=== PATIENT | male | born 1955 | race Caucasian/White ===

== ENCOUNTER 2019-01-25 05:42 | Inpatient (IN) | payer OTHER ==
[~2019-01-25] VITALS: Ht 185.4 cm; Wt 126.1 kg
[2019-01-25 06:19] LABS: Hematocrit 31.8 % (37.0-53.0); Hemoglobin 10.5 g/dL (13.5-17.5); Mean Corpuscular HGB 32.9 pg (26.0-34.0); Mean Corpuscular Volume 100 fL (80-100); Mean Platelet Volume 10.9 fL (9.1-12.4); NRBC ABSOLUTE 0.02 K/mm3 (0.00-0.02); NRBC Auto 0.1 /100 WBC (0.0-0.2); Platelet Count 166 K/mm3 (150-400); RDW Coefficient Variation 12.8 % (11.7-14.2); RDW Standard Deviation 45.9 fL (35.1-46.3); Red Blood Cell Count 3.19 M/mm3 (4.30-5.90); White Blood Cell Count 19.67 K/mm3 (4.00-11.30)
[2019-01-25 06:20] LABS: Calcium, Ionized (POC) 1.17 mmol/L (1.10-1.46); Creatinine (POC) 0.8 mg/dL (0.8-1.3); Hemoglobin (POC) 10.2 g/dL (13.5-17.5); Potassium (POC) 5.1 mmol/L (3.5-5.5)
[2019-01-25 06:39] LABS: Alanine Aminotransfer (ALT/SGP 29 U/L (12-78); Albumin, Blood 3.4 g/dL (3.4-5.0); Albumin/Globulin Ratio 1.1 (0.8-1.8); Alk Phos 94 U/L (50-136); Anion Gap 8 mmol/L (6-16); Aspartate Aminotrans (AST/SGOT 15 U/L (12-37); Bilirubin, Total 0.6 mg/dL (0.1-1.0); Blood Urea Nitrogen 48 mg/dL (8-24); Bun/Creatinine Ratio 67.4 (12.0-20.0); CO2, Blood 25 mmol/L (21-32); Calcium, Blood 8.8 mg/dL (8.5-10.1); Chloride, Blood 108 mmol/L (98-108); Creatinine, Blood 0.71 mg/dL (0.60-1.20); Glomerular Filtration Rate >60 (60-); Glucose, Blood 180 mg/dL (70-99); Potassium, Blood 5.1 mmol/L (3.5-5.5); Sodium, Blood 141 mmol/L (136-145); Total Protein, Blood 6.4 g/dL (6.4-8.2)
[2019-01-25 06:44] LABS: BAND PERCENT MAN 2 % (0-8); BASOPHILS ABSOLUTE MAN 0.19 K/mm3 (0.00-0.23); BASOPHILS PERCENT MAN 1 % (0-2); EOSINOPHILS PERCENT MAN 0 % (0-6); LYMPHOCYTES ABSOLUTE MAN 1.37 K/mm3 (0.84-5.20); LYMPHOCYTES PERCENT MAN 7 % (21-46); MONOCYTES ABSOLUTE MAN 0.78 K/mm3 (0.16-1.47); MONOCYTES PERCENT MAN 4 % (4-13); MYELOCYTE ABSOLUTE MAN 0.19 K/mm3 (0.00-0.00); MYELOCYTE PERCENT MAN 1 % (0-0); NEUTROPHILS ABSOLUTE MAN 17.11 K/mm3 (1.96-9.15); SEG NEUTROPHILS PERCENT MAN 85 % (41-73); TOTAL CELLS COUNTED 100
[2019-01-25] MEDS ORDERED: METO10 PO (08:42)
[2019-01-25] MEDS ORDERED: OXYC5 PO (08:42)
[2019-01-25] MEDS ORDERED: ONDA8 PO (08:42)
[2019-01-25] MEDS ORDERED: LISI20 PO (08:43)
[2019-01-25] MEDS ORDERED: ATOR10 PO (08:43)
[2019-01-25 09:02] LABS: Hematocrit 30.8 % (37.0-53.0); Hemoglobin 10.2 g/dL (13.5-17.5)
[2019-01-25 09:18] LABS: International Normalized Ratio 1.11; Prothrombin Time Results 11.7 Sec (9.7-11.5)
[2019-01-25 13:21] LABS: Hematocrit 29.7 % (37.0-53.0); Hemoglobin 9.6 g/dL (13.5-17.5)
[2019-01-25 14:07] LABS: Hematocrit 30.7 % (37.0-53.0)
[2019-01-25] MEDS ORDERED: Hydrocortiso453.6 G1 TOP (16:36)
[2019-01-25] MEDS ORDERED: Cartia Xt240 MG PO (16:37)
[2019-01-25] MEDS ORDERED: ACET325 PO (16:38)
[2019-01-25] MEDS ORDERED: THERA1 EACH PO (16:38)
--- NOTE | 2019-01-25 16:51 | NUR ---
INTO SDS VIA Float: [place]. PT A&OX3. DENIES PAIN OR NAUSEA AT THIS TIME. HISTORY AND ALLERGIES REVIEWED. NPO STATUS CONFIRMED. LUNGS CLEAR-SATS>90% ON RA.SBP TRENDING 120'S AT THIS TIME-HR 90'S
--- NOTE | 2019-01-25 17:18 | NUR ---
01/25/19 1718 Marcus Carter History, Chart, Medications and Allergies reviewed before start of procedure.MONITOR INTACT WITH CONTINUOUS PULSE OXIMETRY AND INTERMITTENT BP.3-LEAD EKG REVIEWED WITH PHYSICIAN PRIOR TO START OF PROCEDURE.O2 VIA N/C INTACT THROUGHOUT SEDATION/PROCEDURE. Patient confirms NPO status and agrees with scheduled surgery.See Anesthesia record.
--- NOTE | 2019-01-25 18:30 | NUR ---
PT TRANSPORTED TO UNIT VIA STRETCHER, A/0 X 4, PLEASANT/COOPERATIVE, DAUGHTER ACCOMPANYING, VSS
[2019-01-25 19:18] LABS: Hematocrit 29.9 % (37.0-53.0); Hemoglobin 9.8 g/dL (13.5-17.5)
[2019-01-26 04:15] LABS: BASOPHILS ABSOLUTE AUTO 0.08 K/mm3 (0.00-0.23); BASOPHILS PERCENT AUTO 1 % (0-2); EOSINOPHILS ABSOLUTE AUTO 0.01 K/mm3 (0.00-0.68); EOSINOPHILS PERCENT AUTO 0 % (0-6); Hematocrit 28.4 % (37.0-53.0); Hemoglobin 9.2 g/dL (13.5-17.5); IMMATURE GRAN ABSOLUTE AUTO 0.74 K/mm3 (0.00-0.10); IMMATURE GRAN PERCENT AUTO 6 % (0-1); LYMPHOCYTES ABSOLUTE AUTO 1.94 K/mm3 (0.84-5.20); LYMPHOCYTES PERCENT AUTO 16 % (21-46); MONOCYTES ABSOLUTE AUTO 0.78 K/mm3 (0.16-1.47); MONOCYTES PERCENT AUTO 6 % (4-13); Mean Corpuscular HGB 32.3 pg (26.0-34.0); Mean Corpuscular HGB Conc 32.4 g/dL (31.5-36.5); Mean Corpuscular Volume 100 fL (80-100); Mean Platelet Volume 10.9 fL (9.1-12.4); NEUTROPHILS ABSOLUTE AUTO 8.83 K/mm3 (1.96-9.15); NEUTROPHILS PERCENT AUTO 71 % (41-73); NRBC ABSOLUTE 0.02 K/mm3 (0.00-0.02); NRBC Auto 0.2 /100 WBC (0.0-0.2); Platelet Count 116 K/mm3 (150-400); RDW Coefficient Variation 13.4 % (11.7-14.2); RDW Standard Deviation 48.2 fL (35.1-46.3); Red Blood Cell Count 2.85 M/mm3 (4.30-5.90); White Blood Cell Count 12.38 K/mm3 (4.00-11.30)
[2019-01-26 04:29] LABS: Anion Gap 5 mmol/L (6-16); Blood Urea Nitrogen 34 mg/dL (8-24); Bun/Creatinine Ratio 49.3 (12.0-20.0); CO2, Blood 27 mmol/L (21-32); Calcium, Blood 7.9 mg/dL (8.5-10.1); Chloride, Blood 108 mmol/L (98-108); Creatinine, Blood 0.69 mg/dL (0.60-1.20); Glomerular Filtration Rate >60 (60-); Glucose, Blood 102 mg/dL (70-99); Potassium, Blood 4.4 mmol/L (3.5-5.5); Sodium, Blood 140 mmol/L (136-145)
--- NOTE | 2019-01-26 05:19 | NUR ---
NO CHANGES DURING NIGHT. HAS DENIED ANY NEEDS. VS REMAIN STABLE, H/H CONT TO SLOWLY DROP BUT STABLE. HAS BEEN TOLERATING PO, DENIES ANY N/V. POSSIBLE DC HOME TODAY.
--- NOTE | 2019-01-26 16:28 | NUR ---
SHIFT SUMMARY PT HAS DONE WELL TODAY BUT DUE TO HGB DROP, WILL HAVE A SCOPE TOMORROW. DR MCQUEEN INTO SEE PATIENT AND UPDATE HIM ON PLAN OF CARE. PT AGREEABLE. 2 BLACK BMS TODAY. DENIES PAIN OR CRAMPING.
[2019-01-27 05:08] LABS: BASOPHILS ABSOLUTE AUTO 0.06 K/mm3 (0.00-0.23); BASOPHILS PERCENT AUTO 1 % (0-2); EOSINOPHILS PERCENT AUTO 0 % (0-6); Hematocrit 26.4 % (37.0-53.0); Hemoglobin 8.6 g/dL (13.5-17.5); IMMATURE GRAN ABSOLUTE AUTO 0.34 K/mm3 (0.00-0.10); IMMATURE GRAN PERCENT AUTO 5 % (0-1); LYMPHOCYTES ABSOLUTE AUTO 1.56 K/mm3 (0.84-5.20); LYMPHOCYTES PERCENT AUTO 23 % (21-46); MONOCYTES ABSOLUTE AUTO 0.56 K/mm3 (0.16-1.47); MONOCYTES PERCENT AUTO 8 % (4-13); Mean Corpuscular HGB 32.1 pg (26.0-34.0); Mean Corpuscular HGB Conc 32.6 g/dL (31.5-36.5); Mean Corpuscular Volume 99 fL (80-100); Mean Platelet Volume 11.2 fL (9.1-12.4); NEUTROPHILS ABSOLUTE AUTO 4.15 K/mm3 (1.96-9.15); NEUTROPHILS PERCENT AUTO 62 % (41-73); NRBC ABSOLUTE 0.02 K/mm3 (0.00-0.02); NRBC Auto 0.3 /100 WBC (0.0-0.2); Platelet Count 104 K/mm3 (150-400); RDW Coefficient Variation 12.9 % (11.7-14.2); RDW Standard Deviation 45.6 fL (35.1-46.3); Red Blood Cell Count 2.68 M/mm3 (4.30-5.90); White Blood Cell Count 6.67 K/mm3 (4.00-11.30)
[2019-01-27 05:26] LABS: Anion Gap 5 mmol/L (6-16); Blood Urea Nitrogen 18 mg/dL (8-24); Bun/Creatinine Ratio 27.1 (12.0-20.0); CO2, Blood 26 mmol/L (21-32); Calcium, Blood 8.1 mg/dL (8.5-10.1); Chloride, Blood 107 mmol/L (98-108); Creatinine, Blood 0.66 mg/dL (0.60-1.20); Glomerular Filtration Rate >60 (60-); Glucose, Blood 92 mg/dL (70-99); Potassium, Blood 4.5 mmol/L (3.5-5.5); Sodium, Blood 138 mmol/L (136-145)
--- NOTE | 2019-01-27 05:28 | NUR ---
PT DOING WELL. DENIES ANY PAIN, N/V, SOB. STATES SLEPT VERY WELL DURING NIGHT. LABS PENDING THIS AM. PLAN FOR ANOTHER EGD TODAY WITH DR. ZAMORANO. PT IS NPO. PT IS HOPEFUL TO BE ABLE TO GO HOME TODAY. CALL LIGHT IN REACH WILL REPORT OF TO NEXT SHIFT.
--- NOTE | 2019-01-27 14:00 | NUR ---
PT TO DAY SURGERY
--- NOTE | 2019-01-27 14:14 | NUR ---
FROM SURGICAL FLOOR TO [facility]. VSS ADMISSION TO UNIT STARTED. Lungs clear T/O to Auscultation. Patient confirms NPO status and agrees with scheduled surgery.
--- NOTE | 2019-01-27 15:55 | NUR ---
POST OP PT ARRIVES POST OP, DENIES PAIN, N/V, CRAMPING, DIZZINESS. LUNGS CLEAR. CLEAR LQS GIVEN. VSS.
[2019-01-27 16:03] LABS: Hematocrit 26.8 % (37.0-53.0); Hemoglobin 8.9 g/dL (13.5-17.5)
--- NOTE | 2019-01-27 19:27 | NUR ---
SHIFT SUMMARY PT HAD SCOPE TODAY. GI CLEARED PT FOR D/C BUT UNFORTUNATELY TO LATE IN DAY FOR D/C FROM [facility]. WILL CONTINUE MONITORING AND RECHECK HGB IN AM.
--- NOTE | 2019-01-28 05:33 | NUR ---
SHIFT SUMMARY: PT HAS DONE WELL THIS SHIFT. A&O X4, VS WNL. RESTING THROUGHOUT NIGHT. NO COMPLAINTS OF PAIN OR N/V. VOIDING WELL. INDEPENDENT IN ROOM. PT SHOULD DISCHARGE HOME TODAY.
[2019-01-28 05:59] LABS: BASOPHILS ABSOLUTE AUTO 0.07 K/mm3 (0.00-0.23); BASOPHILS PERCENT AUTO 1 % (0-2); EOSINOPHILS PERCENT AUTO 0 % (0-6); Hematocrit 25.8 % (37.0-53.0); Hemoglobin 8.5 g/dL (13.5-17.5); IMMATURE GRAN ABSOLUTE AUTO 0.17 K/mm3 (0.00-0.10); IMMATURE GRAN PERCENT AUTO 3 % (0-1); LYMPHOCYTES PERCENT AUTO 18 % (21-46); MONOCYTES ABSOLUTE AUTO 0.58 K/mm3 (0.16-1.47); MONOCYTES PERCENT AUTO 9 % (4-13); Mean Corpuscular HGB 32.2 pg (26.0-34.0); Mean Corpuscular HGB Conc 32.9 g/dL (31.5-36.5); Mean Corpuscular Volume 98 fL (80-100); Mean Platelet Volume 11.1 fL (9.1-12.4); NEUTROPHILS ABSOLUTE AUTO 4.56 K/mm3 (1.96-9.15); NEUTROPHILS PERCENT AUTO 69 % (41-73); Platelet Count 126 K/mm3 (150-400); RDW Coefficient Variation 12.8 % (11.7-14.2); RDW Standard Deviation 44.5 fL (35.1-46.3); Red Blood Cell Count 2.64 M/mm3 (4.30-5.90); White Blood Cell Count 6.58 K/mm3 (4.00-11.30)
[2019-01-28 06:41] LABS: Anion Gap 6 mmol/L (6-16); Blood Urea Nitrogen 15 mg/dL (8-24); Bun/Creatinine Ratio 23.3 (12.0-20.0); CO2, Blood 27 mmol/L (21-32); Calcium, Blood 8.2 mg/dL (8.5-10.1); Chloride, Blood 106 mmol/L (98-108); Creatinine, Blood 0.64 mg/dL (0.60-1.20); Glomerular Filtration Rate >60 (60-); Glucose, Blood 100 mg/dL (70-99); Potassium, Blood 4.2 mmol/L (3.5-5.5); Sodium, Blood 139 mmol/L (136-145)
[2019-01-28] MEDS ORDERED: Ferrousul325 MG PO (11:56)
[2019-01-28] MEDS ORDERED: PANT40 PO (11:57)
--- NOTE | 2019-01-28 12:32 | NUR ---
PATIENT D/C'D HOME AT THIS TIME W/FAMILY; STATES UNDERSTANDING OF MEDS, DIET, F/U APPOINTMENT, ETC. NO REPORT OF BLEEDING THIS SHIFT. TOLERATING CL DIET W/O C/O. NO ACUTE CHANGES.
== END 2019-01-28 12:32 | disposition home or self-care (01) | DRG 378 ==
LOC: ER 05:42 → ICUW 07:13 → ERHOLD 07:13 → SURS 07:13 → ER 07:13 → ERHOLD 09:56 → SURS 18:39
PROVIDERS: Emergency Medicine; Internal Medicine Gastroenterology; ADMIT Family Medicine
PROC: 0D598ZZ Destruction of Duodenum, Via Natural or Artificial Opening Endoscopic (ICD-10-PCS; 2019-01-25)
PROC: 0D568ZZ Destruction of Stomach, Via Natural or Artificial Opening Endoscopic (ICD-10-PCS; 2019-01-25)
PROC: 30233N1 Transfusion of Nonautologous Red Blood Cells into Peripheral Vein, Percutaneous Approach (ICD-10-PCS; principal; 2019-01-25 17:00)
PROC: 0D598ZZ Destruction of Duodenum, Via Natural or Artificial Opening Endoscopic (ICD-10-PCS; 2019-01-27)
DX: K31.811 Angiodysplasia of stomach and duodenum with bleeding (principal); I42.2 Other hypertrophic cardiomyopathy; K22.10 Ulcer of esophagus without bleeding; Z90.12 Acquired absence of left breast and nipple; I95.9 Hypotension, unspecified; C50.922 Malignant neoplasm of unspecified site of left male breast; G47.33 Obstructive sleep apnea (adult) (pediatric); Z92.21 Personal history of antineoplastic chemotherapy
CPT/HCPCS: 36415; 36430; 80047; 80048; 80053; 83690; 85014; 85018; 85025; 85610; 86850; 86900; 86901; 86923; 93005; 93010; 96365; 96366; 96376; 99285-25; C9113; J2704; J7030; J7120; P9016

== ENCOUNTER 2019-02-07 02:04 | Inpatient (IN) | payer OTHER ==
[~2019-02-07] VITALS: Ht 185.4 cm; Wt 132.8 kg
[~2019-02-07 02:04] MED LIST: ACET325 PO; ATOR10 PO; Cartia Xt240 MG PO; Ferrousul325 MG PO; Hydrocortiso453.6 G1 TOP; LISI20 PO; METO10 PO; ONDA8 PO; OXYC5 PO; PANT40 PO; THERA1 EACH PO
[2019-02-07 02:50] LABS: Hematocrit 22.7 % (37.0-53.0); Hemoglobin 7.3 g/dL (13.5-17.5); Mean Corpuscular HGB 33.3 pg (26.0-34.0); Mean Corpuscular HGB Conc 32.2 g/dL (31.5-36.5); Mean Platelet Volume 11.3 fL (9.1-12.4); NRBC ABSOLUTE 0.02 K/mm3 (0.00-0.02); NRBC Auto 0.1 /100 WBC (0.0-0.2); Platelet Count 246 K/mm3 (150-400); RDW Coefficient Variation 14.3 % (11.7-14.2); RDW Standard Deviation 53.5 fL (35.1-46.3); Red Blood Cell Count 2.19 M/mm3 (4.30-5.90); White Blood Cell Count 25.86 K/mm3 (4.00-11.30)
[2019-02-07 02:52] LABS: Mean Corpuscular Volume 104 fL (80-100)
[2019-02-07 03:08] LABS: Alanine Aminotransfer (ALT/SGP 31 U/L (12-78); Albumin/Globulin Ratio 1.2 (0.8-1.8); Alk Phos 90 U/L (50-136); Anion Gap 8 mmol/L (6-16); Aspartate Aminotrans (AST/SGOT 25 U/L (12-37); Bilirubin, Total 0.6 mg/dL (0.1-1.0); Blood Urea Nitrogen 34 mg/dL (8-24); CO2, Blood 26 mmol/L (21-32); Calcium, Blood 8.2 mg/dL (8.5-10.1); Chloride, Blood 103 mmol/L (98-108); Creatinine, Blood 0.79 mg/dL (0.60-1.20); Globulin, Blood 2.6 g/dL (2.2-4.0); Glomerular Filtration Rate >60 (60-); Glucose, Blood 212 mg/dL (70-99); Potassium, Blood 4.9 mmol/L (3.5-5.5); Sodium, Blood 137 mmol/L (136-145); Total Protein, Blood 5.6 g/dL (6.4-8.2)
[2019-02-07 03:20] LABS: BAND PERCENT MAN 9 % (0-8); BASOPHILS PERCENT MAN 0 % (0-2); EOSINOPHILS ABSOLUTE MAN 0.25 K/mm3 (0.00-0.68); EOSINOPHILS PERCENT MAN 1 % (0-6); LYMPHOCYTES ABSOLUTE MAN 0.77 K/mm3 (0.84-5.20); LYMPHOCYTES PERCENT MAN 3 % (21-46); METAMYELOCYTE ABSOLUTE MAN 0.51 K/mm3 (0.00-0.00); METAMYELOCYTE PERCENT MAN 2 % (0-0); MONOCYTES ABSOLUTE MAN 0.77 K/mm3 (0.16-1.47); MONOCYTES PERCENT MAN 3 % (4-13); NEUTROPHILS ABSOLUTE MAN 23.53 K/mm3 (1.96-9.15); SEG NEUTROPHILS PERCENT MAN 82 % (41-73); TOTAL CELLS COUNTED 100
[2019-02-07 03:42] LABS: Troponin I 0.028 ng/mL (0.000-0.040)
[2019-02-07 03:43] LABS: International Normalized Ratio 1.19; Prothrombin Time Results 12.4 Sec (9.7-11.5)
[2019-02-07] MEDS ORDERED: ASCO500 PO (06:33)
[2019-02-07] MEDS ORDERED: IRON150C PO (06:34)
[2019-02-07 09:43] LABS: Hematocrit 18.3 % (37.0-53.0); Mean Corpuscular HGB 32.1 pg (26.0-34.0); Mean Corpuscular HGB Conc 32.2 g/dL (31.5-36.5); Mean Platelet Volume 11.6 fL (9.1-12.4); Platelet Count 182 K/mm3 (150-400); RDW Coefficient Variation 16.2 % (11.7-14.2); RDW Standard Deviation 58.1 fL (35.1-46.3); Red Blood Cell Count 1.84 M/mm3 (4.30-5.90); White Blood Cell Count 15.84 K/mm3 (4.00-11.30)
[2019-02-07 09:50] LABS: Mean Corpuscular Volume 100 fL (80-100)
[2019-02-07 09:51] LABS: Hemoglobin 5.9 g/dL (13.5-17.5)
[2019-02-07 10:04] LABS: Alanine Aminotransfer (ALT/SGP 24 U/L (12-78); Albumin, Blood 2.5 g/dL (3.4-5.0); Albumin/Globulin Ratio 1.2 (0.8-1.8); Alk Phos 64 U/L (50-136); Anion Gap 6 mmol/L (6-16); Aspartate Aminotrans (AST/SGOT 17 U/L (12-37); Bilirubin, Total 0.6 mg/dL (0.1-1.0); Blood Urea Nitrogen 36 mg/dL (8-24); CO2, Blood 26 mmol/L (21-32); Calcium, Blood 7.4 mg/dL (8.5-10.1); Chloride, Blood 108 mmol/L (98-108); Creatinine, Blood 0.67 mg/dL (0.60-1.20); Globulin, Blood 2.1 g/dL (2.2-4.0); Glomerular Filtration Rate >60 (60-); Glucose, Blood 137 mg/dL (70-99); Potassium, Blood 4.8 mmol/L (3.5-5.5); Sodium, Blood 140 mmol/L (136-145); Total Protein, Blood 4.6 g/dL (6.4-8.2)
--- NOTE | 2019-02-07 11:54 | NUR ---
BEGINING OF SHIFT: ASSUMED CARE OF PT AT 0700, RECIVED REPORT FROM MALINDA DING. PT IS ALERT AND ORIENTED X3. PT IS CALM AND COOPRATIVE AND IS ABLE TO FOLLOW DIRECTIONS. PT BLOOD PRESSURE HAD DECREASED WITH SBP IN THE 80'S WITH HR ABOVE 100. WAS NOTIFED BY BABS DING. PHYSICAN PLACED ORDERS TO HAVE A NS BOLUS. PT BLOOD PRESSURE IS BEGINING TO IMPROVE, AND IS CURRENTLY RECIVING A TRANSFUSION. EXPLAINED TO PT THAT HE SHOULD NOT GET OUT OF BED, AND WAS ENCOURAGED TO USE URINAL IN BED AT THIS TIME. WILL CONTINUE TO MONITOR FOR CHANGES. BED SET AT LOWEST LEVEL AND CALL LIGHT IS WITHIN REACH.
--- NOTE | 2019-02-07 12:54 | NUR ---
History, Chart, Medications and Allergies reviewed before start of procedure.Lungs clear T/O to Auscultation. Patient confirms NPO status and agrees with scheduled surgery.
--- NOTE | 2019-02-07 13:16 | NUR ---
02/07/19 1316 Ajith Prseton Bite Block PlacedPatient to ENDO 1History, Chart, Medications and Allergies reviewed before start of procedure.MONITOR INTACT WITH CONTINUOUS PULSE OXIMETRY AND INTERMITTENT BP.O2 VIA N/C INTACT THROUGHOUT SEDATION/PROCEDURE.See Anesthesia record.
--- NOTE | 2019-02-07 14:20 | NUR ---
INITIAL ASSESSMENT PATIENT ARRIVED TO UNIT AT 1415. PATIENT PALE. LETHARGIC. PATIENT ALERT AND ORIENTED X 4, AFEBRILE. PATIENT DENIES PAIN. PATIENT WEAK- BEDREST AT THIS TIME. PATIENT SATTING 92% AND GREATER ON RA. LUNGS CLEAR IN UPPER LOBES AND DIMINISHED IN LOWER LOBES. PATIENT IN ST, HR IN THE 1-TEENS. HYPOTENSIVE- SBP IN THE 70S. 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 ABDOMEN MILDLY DISTENDED, SOFT, NORMOACTIVE BS. PATIENT DENIES TENDERNESS. REPORTED THAT PATIENT HAD CEE RED EMESIS IN ER AND THEN BLACK STOOL IN PCU. PATIENT HAS RECEIVED 2 UNITS BLOOD BEFORE ADMIT TO ICU. WNL. BED LOW, CALL LIGHT IN REACH. DAUGHTER AT BEDSIDE.
--- NOTE | 2019-02-07 15:42 | NUR ---
BEGINNING OF SHIFT - TRANSFER TO ICU Assumed care of pt at 0700 with Mamta URBANO. Report recieved from Leti DING. Pt on room air. Sinus tachycardia per telemetry. Pt had low BP this morning. Spoke with Dr Duncan regarding BP, who placed orders and then stated Dr Triplett would be assuming care of the pt. Fluid bolus initiated. Critical hemoglobin received. This RN placed call to Dr Triplett. Dr Sanchez also aware. This RN spoke to Dr Sanchez regarding the pt's BP. Provider verbalized plan for EGD in afternoon, after one unit of PRBCs transfued. One unit PRBCs transfused. Pt taken for EGD and then was transferred to ICU after the procedure. Mamta URBANO accompanied pt to day surgery and then gave bedside report to STITCH RUBBER, Chantale. Belongings transferred from PCU 13 to ICU 14.
[2019-02-07 16:04] LABS: Hematocrit 16.9 % (37.0-53.0); Hemoglobin 5.4 g/dL (13.5-17.5)
--- NOTE | 2019-02-07 18:43 | NUR ---
SHIFT SUMMARY PATIENT IS AOX4 AND LETHARGIC. PATIENT EXPRESSES FEELING WEAK AND IS BEDREST AT THIS TIME. PATIENT IS AFEBRILE. NO COMPLAINTS OF PAIN AT THIS TIME. PATIENT SKIN COLOR HAS IMPROVED. PATIENT IS SATTING 90% OR GREATER ON RA. HR IS IN THE LOW 100S TO 1-TEENS. BP IS STABLE NOW. PATIENT HAS MILD ABDOMINAL DISTENSION. PATIENT HAS HAD TWO SMALL LIQUID MAROON STOOLS. IS WNL, PATIENT IS UTILIZING THE URINAL AT THE BEDSIDE. PATIENT RECEIVING 3RD UNIT OF PRBCS SINCE ADMITTED TO ICU. BED LOW. CALL LIGHT IN REACH.
--- NOTE | 2019-02-07 19:15 | NUR ---
[place] of Care: Patient alert and oriented x4, sitting upright in bed. Denies pain, discomfort, SOB, or dyspnea. VSS, O2-95-96% on RA, systolic BP 90's- low 100's. No s/s of active GI bleed at this time, maroon stool x2 report from day shift RN. 3rd of 3 units of blood started at shift change. Will check H+H level 1/2hr after blood has finished infusing, no s/s of infusion reaction noted. Peripheral IV to rt AC patent and intact. Medi-port access to rt upper chest patent and intact, infusing protonix gtt without difficulty. Call light in reach, makes needs known. Will continue to monitor until report to day shift RN.
[2019-02-07 23:34] LABS: Hematocrit 22.3 % (37.0-53.0); Hemoglobin 7.4 g/dL (13.5-17.5)
--- NOTE | 2019-02-08 06:14 | NUR ---
Shift Summary: Patient slept well throughout shift, easily roused via verbal stimuli. Continues to deny pain, discomfort, SOB, or dyspnea. VSS, O2-94-98% on RA while awake, 2-4L/NC while sleeping. X1 maroon colored BM early in shift, no further BM's noted, no s/s of active GI bleed. Systolic BP increased throughout shift, from 80's-90's to 120's. H+H at approx 0100hr showed hemoglobin of 7.4, ordered x2 units of PRBC's per Dr. Triplett nurse notify, 2nd of those 2 units infusing now. Peripheral IV x1, and mediport to rt upper chest remain patent and intact. No s/s of transfusion reactions noted. Sleeping at this time. Will continue to monitor until report to day shift RN.
--- NOTE | 2019-02-08 08:00 | NUR ---
ASSUMED CARE PT. ALERT AND ORIENTED THIS AM. PT. RESTING COMFORTABLY IN BED, DENIES PAIN THIS AM. BLOOD PRODUCTS COMPLETED AND H&H REPEAT TO BE DRAWN PER DR. CAGE. PT. VSS THIS AM. DENIES ANY N/V. URINAL AT BEDSIDE. CALL LIGHT IN REACH. FAMILY AT BEDSIDE THIS AM.
[2019-02-08 08:42] LABS: Hematocrit 25.8 % (37.0-53.0); Hemoglobin 8.5 g/dL (13.5-17.5)
--- NOTE | 2019-02-08 08:42 | NUR ---
SPOKE WITH DR. CHE AMADO FOR PT TO HAVE ICE CHIPS THIS AM. PT. TO HAVE UPPER SCOPE AGAIN TODAY, TIME TBD.
--- NOTE | 2019-02-08 16:42 | NUR ---
02/08/19 1645 Sharron Coffey History, Chart, Medications and Allergies reviewed before start of procedure. MONITOR INTACT WITH CONTINUOUS PULSE OXIMETRY AND INTERMITTENT BP. Bite Block PlacedSee Anesthesia record.
--- NOTE | 2019-02-08 17:02 | NUR ---
DAY SURGERY TEAM AT BEDSIDE SCOPE IN PROGRESS.
--- NOTE | 2019-02-08 17:43 | NUR ---
SCOPE COMPLETED. PT. DROWSY IN ROOM, PT. REMAINS ON 2LNC. PHOTOS FROM PROCEDURE IN CHART. MAY ADVANCE TO CLEAR LIQUID DIET WHEN READY.
--- NOTE | 2019-02-08 17:55 | NUR ---
SHIFT SUMMARY PT. RESTING COMFORTABLY IN BED. PER DR. BOLTON CHANGED TO PCU STATUS AT THIS TIME. VSS. NADN. CALL LIGHT IN REACH.
--- NOTE | 2019-02-08 22:17 | NUR ---
ASSUMING CARE RECEIVED PT REPORT FROM TIMUR PERAZA. PT IS ALERT AND ORIENTED AT THE TIME CARE ASSUMED. PT IS ADMITTED DUE TO UPPER GI BLEED. PER REPORT PT HAS PREVIOUSLY RECEIVED MULTIPLE UNITS OF BLOOD. PER REPORT AND PT, PT WAS HAVING BLACK TARRY STOOL. PT DENIES THE NEED TO HAVE BOWEL MOVEMENT AT THIS TIME. PT IS ON 2L O2 VIA NC WHILE ASLEEP DUE TO OCCASIONAL DESATURATIONS WHILE SLEEPING. PT IS RECEIVING NS AT 125ML/HR AND PROTONIX GTT AT 10ML/HR. PT IS ABLE TO USE THE URINAL WITHOUT DIFFICULTY. PT IS ABLE TO USE CALL LIGHT APPROPRIATELY. PT DENIES PAIN OR DISCOMFORT AT THIS TIME. PT STATES THAT HE FEELS HIS STRENGTH IN IMPROVING AND DENIES ANY LIGHT HEADEDNESS AT THIS TIME. HR AND BP STABLE AT THIS TIME. ASSUMING CARE OF PT AT THE TIME OF SHIFT REPORT. WILL CONTINUE TO MONITOR PT.
--- NOTE | 2019-02-09 02:21 | NUR ---
RHYTHM CHANGE AT APPROX 0212 PT WAS OBSERVED TO HAVE ENTERED A FAST RHYTHM WITH HR IN THE 150'S. PT DENIED ANY CHEST PAIN AND BP APPEARED TO MAINTAIN THROUGH THE EPISODE. PT REPORTED A FEELING OF REFLUX OR HEARTBURN. SVT APPEARED TO LAST FOR LESS THAN 1 MIN AND PT RETURNED TO PREVIOUS RATE IN THE 80-90'S. PT REPORTED THAT THE SENSATION OF REFLUX ENDED ONCE PT RETURNED TO SINUS RHYTHM. DR FARIAS CALLED AND INFORMED. ORDER RECEIVED TO DRAW CHEM 8 LAB AND TO DRAW AM LABS EARLY. WILL CONTINUE TO MONITOR PT.
[2019-02-09 02:53] LABS: Hemoglobin 7.6 g/dL (13.5-17.5); Mean Corpuscular HGB 29.9 pg (26.0-34.0); Mean Platelet Volume 11.2 fL (9.1-12.4); Platelet Count 88 K/mm3 (150-400); RDW Coefficient Variation 19.8 % (11.7-14.2); RDW Standard Deviation 65.8 fL (35.1-46.3); Red Blood Cell Count 2.54 M/mm3 (4.30-5.90); White Blood Cell Count 2.14 K/mm3 (4.00-11.30)
[2019-02-09 02:56] LABS: Mean Corpuscular Volume 91 fL (80-100)
[2019-02-09 03:10] LABS: Anion Gap 5 mmol/L (6-16); Blood Urea Nitrogen 15 mg/dL (8-24); Bun/Creatinine Ratio 24.5 (12.0-20.0); CO2, Blood 27 mmol/L (21-32); Calcium, Blood 7.1 mg/dL (8.5-10.1); Chloride, Blood 111 mmol/L (98-108); Creatinine, Blood 0.61 mg/dL (0.60-1.20); Glomerular Filtration Rate >60 (60-); Glucose, Blood 86 mg/dL (70-99); Potassium, Blood 3.8 mmol/L (3.5-5.5); Sodium, Blood 143 mmol/L (136-145)
[2019-02-09 03:18] LABS: BAND PERCENT MAN 15 % (0-8); BASOPHILS ABSOLUTE MAN 0.04 K/mm3 (0.00-0.23); BASOPHILS PERCENT MAN 2 % (0-2); EOSINOPHILS PERCENT MAN 5 % (0-6); LYMPHOCYTES ABSOLUTE MAN 0.27 K/mm3 (0.84-5.20); LYMPHOCYTES PERCENT MAN 13 % (21-46); METAMYELOCYTE ABSOLUTE MAN 0.06 K/mm3 (0.00-0.00); METAMYELOCYTE PERCENT MAN 3 % (0-0); MONOCYTES ABSOLUTE MAN 0.06 K/mm3 (0.16-1.47); MONOCYTES PERCENT MAN 3 % (4-13); MYELOCYTE ABSOLUTE MAN 0.04 K/mm3 (0.00-0.00); MYELOCYTE PERCENT MAN 2 % (0-0); NEUTROPHILS ABSOLUTE MAN 1.54 K/mm3 (1.96-9.15); SEG NEUTROPHILS PERCENT MAN 57 % (41-73); TOTAL CELLS COUNTED 100
--- NOTE | 2019-02-09 07:22 | NUR ---
SHIFT SUMMARY NOTE PT HAS REMAINED ALERT AND ORIENTED WHILE AWAKE THROUGH THE NIGHT. PT HAS HAD NO COMPLAINTS OF PAIN OR DISCOMFORT THROUGH THE NIGHT WITH THE EXCEPTION OF BRIEF PERIOD OF REFLUX THROUGH EPISODE OF SVT THAT WAS PREVIOUSLY NOTED. WITH MORNING LABS PT WAS FOUND TO HAVE A HGB LESS THAN 8.0. DR FARIAS WAS CALLED AND INFORMED OF PTS DECREASED H/H, WBC, AND PLT. ORDER RECEIVED TO TRANSFUSE 1 UNIT PRBC'S UNIT TRANSFUSED ORDERED. PT HAD NO FURTHER OBSERVED EPISODES OF SVT AND HR WAS OTHERWISE STABLE IN THE 80-90 RANGE. VITALS OTHERWISE STABLE. PT CONTINUES TO RECEIVE NS AT 125ML/HR. NS WAS PLACED ON STANDBY THROUGH BLOOD TRANSFUSION, AND RESUMED AFTER COMPLETION. PT CONTINUES TO RECEIVE PROTONIX AT 10ML/HR. PT HAS BEEN ABLE TO USE URINAL THROUGH THE NIGHT WITHOUT ASSISTANCE. PT ABLE OT USE CALL LIGHT APPROPRIATELY. WILL REPORT OFF TO ONCOMING DAY SHIFT NURSE.
--- NOTE | 2019-02-09 09:30 | NUR ---
ASSUMED CARE PT ALERT AND ORIENTED. VS STABLE. 02 SATS >92% ON 2L NC. PT TITRATED TO ROOM AIR WITH SATS REMAINING ABOVE 92%. PT DENIES ANY PAIN. LS CLEAR. BOWEL TONES HYPERACTIVE IN ALL FOUR QUADRANTS. NS INFUSING PER ORDERS INTO MEDIPORT. PROTONIX GTT INFUSING PER ORDERS. PT TOLERATING CLEAR LIQUIDS. WILL CONTINUE TO MONITOR,
[2019-02-09 15:00] LABS: BASOPHILS ABSOLUTE AUTO 0.04 K/mm3 (0.00-0.23); BASOPHILS PERCENT AUTO 2 % (0-2); Hematocrit 27.7 % (37.0-53.0); Hemoglobin 9.1 g/dL (13.5-17.5); LYMPHOCYTES ABSOLUTE AUTO 0.38 K/mm3 (0.84-5.20); LYMPHOCYTES PERCENT AUTO 18 % (21-46); MONOCYTES ABSOLUTE AUTO 0.15 K/mm3 (0.16-1.47); MONOCYTES PERCENT AUTO 7 % (4-13); Mean Corpuscular HGB 29.5 pg (26.0-34.0); Mean Corpuscular HGB Conc 32.9 g/dL (31.5-36.5); Mean Corpuscular Volume 90 fL (80-100); Mean Platelet Volume 11.5 fL (9.1-12.4); Platelet Count 88 K/mm3 (150-400); RDW Coefficient Variation 18.2 % (11.7-14.2); RDW Standard Deviation 60.4 fL (35.1-46.3); Red Blood Cell Count 3.08 M/mm3 (4.30-5.90); White Blood Cell Count 2.11 K/mm3 (4.00-11.30)
[2019-02-09 15:03] LABS: EOSINOPHILS ABSOLUTE AUTO 0.05 K/mm3 (0.00-0.68); EOSINOPHILS PERCENT AUTO 2 % (0-6); IMMATURE GRAN ABSOLUTE AUTO 0.02 K/mm3 (0.00-0.10); IMMATURE GRAN PERCENT AUTO 1 % (0-1); NEUTROPHILS ABSOLUTE AUTO 1.47 K/mm3 (1.96-9.15); NEUTROPHILS PERCENT AUTO 70 % (41-73)
--- NOTE | 2019-02-09 18:14 | NUR ---
SHIFT SUMMARY PT ALERT AND ORIENTED. VS STABLE. ELEVATION IN BP AND NEW ORDERS PROVIDED FOR BP AND HR CONTROL. PT HAD ONE LARGE LIQUID BROWN BOWEL MOVEMENT THIS SHIFT. PT ADVANCED TO REGULAR DIET. PROTONIX GTT INFUSING PER ORDERS. NS INFUSING TKO INTO MEDIPORT. PER DR. BOLTON PT TO DISCHARGE TOMORROW. WILL CONTINUE TO MONITOR AND REPORT TO ONCOMING RN. CALL LIGHT IN REACH. FAMILY AT BEDSIDE.
[2019-02-10 05:23] LABS: Hematocrit 27.7 % (37.0-53.0); Hemoglobin 9.1 g/dL (13.5-17.5); Mean Corpuscular HGB 29.4 pg (26.0-34.0); Mean Corpuscular HGB Conc 32.9 g/dL (31.5-36.5); Mean Corpuscular Volume 90 fL (80-100); Mean Platelet Volume 11.2 fL (9.1-12.4); Platelet Count 102 K/mm3 (150-400); RDW Coefficient Variation 17.7 % (11.7-14.2); RDW Standard Deviation 58.6 fL (35.1-46.3); Red Blood Cell Count 3.09 M/mm3 (4.30-5.90); White Blood Cell Count 2.08 K/mm3 (4.00-11.30)
[2019-02-10 05:40] LABS: Alanine Aminotransfer (ALT/SGP 20 U/L (12-78); Albumin, Blood 2.5 g/dL (3.4-5.0); Alk Phos 58 U/L (50-136); Anion Gap 4 mmol/L (6-16); Aspartate Aminotrans (AST/SGOT 13 U/L (12-37); Bilirubin, Total 0.7 mg/dL (0.1-1.0); Blood Urea Nitrogen 8 mg/dL (8-24); Bun/Creatinine Ratio 12.7 (12.0-20.0); CO2, Blood 29 mmol/L (21-32); Calcium, Blood 7.6 mg/dL (8.5-10.1); Chloride, Blood 106 mmol/L (98-108); Creatinine, Blood 0.63 mg/dL (0.60-1.20); Globulin, Blood 2.6 g/dL (2.2-4.0); Glomerular Filtration Rate >60 (60-); Glucose, Blood 106 mg/dL (70-99); Magnesium, Blood 1.8 mg/dL (1.6-2.4); Phosphorus, Blood 2.9 mg/dL (2.5-4.9); Potassium, Blood 3.6 mmol/L (3.5-5.5); Sodium, Blood 139 mmol/L (136-145); Total Protein, Blood 5.1 g/dL (6.4-8.2)
[2019-02-10 06:10] LABS: BAND PERCENT MAN 8 % (0-8); BASOPHILS PERCENT MAN 0 % (0-2); EOSINOPHILS PERCENT MAN 0 % (0-6); LYMPHOCYTES ABSOLUTE MAN 0.41 K/mm3 (0.84-5.20); LYMPHOCYTES PERCENT MAN 20 % (21-46); METAMYELOCYTE ABSOLUTE MAN 0.02 K/mm3 (0.00-0.00); METAMYELOCYTE PERCENT MAN 1 % (0-0); MONOCYTES ABSOLUTE MAN 0.22 K/mm3 (0.16-1.47); MONOCYTES PERCENT MAN 11 % (4-13); NEUTROPHILS ABSOLUTE MAN 1.41 K/mm3 (1.96-9.15); SEG NEUTROPHILS PERCENT MAN 60 % (41-73); TOTAL CELLS COUNTED 100
--- NOTE | 2019-02-10 06:44 | NUR ---
SHIFT SUMMARY PT ALERT AND ORIENTED X 3 THROUGHOUT SHIFT. HE HAS BEEN ABLE TO STAND AND WALK TO TOILET FOR NEEDS AND HIS GAIT WAS OBSERVED TO BE STEADY AND WELL BALANCED. THERE HAVE BEEN NO SIGNS OF BLEEDING DURING THE NIGHT AND PATIENT HAD DENIED ANY COPMPLAINTS OF PAIN OR DISCOMFORT. PT HAD NO ACUTE CHANGES TO VITALS OR LOC. PT WAS ABLE TO EFFECTIVELY MAKE NEEDS KNOWN, HAD HIS CALL LIGHT WITHIN REACH AND DEMONSTRATED APPROPRIATE USE OF IT. PT BED WAS LEFT IN THE LOWEST POSITION WITH 2X SIDE RAILS IN PLACE. PT HAS BEEN PLEASANT AND COOPERATIVE THROGUHOUT SHIFT. HE WILL CONTINUE TO BE MONITORED UNTIL HANDOFF TO DAYSHIFT RN.
--- NOTE | 2019-02-10 07:38 | NUR ---
ASSUMED CARE: REPORT RECIEVED FROM DAMIEN Pugh RN. ASSUMED CARE OF THIS PT AT APPROX 0700. ON ASSESSMENT, THE PT IS AWAKE & SITTING UP IN BED. HE DENIES PAIN THIS AM & IS PLEASANT/COOPERATIVE W/ CARE. HE IS A&O & HOPEFUL FOR D/C HOME TODAY. PT REMAINS ON RA W/ O2 SATS > 92%. NSR NOTED ON MONITOR. HTN IS BASELINE FOR PT, MEDS PER EMAR TO BE GIVEN THIS AM. WILL CONTINUE TO MONITOR & UPDATE NEEDED.
--- NOTE | 2019-02-10 11:53 | NUR ---
DISCHARGE TO HOME: DISCHARGE TEACHING HAS BEEN COMPLETED TO PT & PT's DAUGHTER, THEY DENY FURTHER QUESTIONS & VERBALIZE UNDERSTANDING. MEDIPORT HAS BEEN HEPARIN LOCKED & DEACCESSED, HEART MONITOR & PIV HAVE BEEN REMOVED W/O DIFFICULTY. ALL PT BELONGINGS & D/C PACKET HAVE BEEN TAKEN OUT BY PT's DAUGHTER.
== END 2019-02-10 11:50 | disposition home or self-care (01) | DRG 378 ==
LOC: ER 02:04 → PCU 02:05 → ICUW 02:05 → PCU 06:16 → ICUW 06:20
PROVIDERS: Emergency Medicine; Family Medicine; Hospitalist; Internal Medicine Gastroenterology; Nurse Practitioner Acute Care; ADMIT Internal Medicine
PROC: 0DJ08ZZ Inspection of Upper Intestinal Tract, Via Natural or Artificial Opening Endoscopic (ICD-10-PCS; 2019-02-07)
PROC: 30233N1 Transfusion of Nonautologous Red Blood Cells into Peripheral Vein, Percutaneous Approach (ICD-10-PCS; principal; 2019-02-07 13:00)
PROC: 0W3P8ZZ Control Bleeding in Gastrointestinal Tract, Via Natural or Artificial Opening Endoscopic (ICD-10-PCS; 2019-02-08)
PROC: 0D568ZZ Destruction of Stomach, Via Natural or Artificial Opening Endoscopic (ICD-10-PCS; 2019-02-08)
DX: K31.811 Angiodysplasia of stomach and duodenum with bleeding (principal); C77.9 Secondary and unspecified malignant neoplasm of lymph node, unspecified; D62 Acute posthemorrhagic anemia; I42.1 Obstructive hypertrophic cardiomyopathy; Z90.12 Acquired absence of left breast and nipple; C50.929 Malignant neoplasm of unspecified site of unspecified male breast; I95.9 Hypotension, unspecified; D69.6 Thrombocytopenia, unspecified
CPT/HCPCS: 36415; 36430; 74174; 80048; 80053; 82947; 83735; 84100; 84484; 85014; 85018; 85025; 85027; 85610; 86850; 86900; 86901; 86923; 93005; 93010; 96365; 96366; 96376; 99285-25; C9113; G0378; J0171; J1430; J1642; J2250; J2370; J2405; J2704; J2765; J7030; J7120; P9016; Q9967; Q9968